=== PATIENT | male | born 1985 | race African-American/Black ===

== ENCOUNTER 2016-07-16 05:14 | Day surgery (SDC) | payer OTHER ==
[~2016-07-16] VITALS: Ht 185.4 cm; Wt 95.3 kg
--- NOTE | ~2016-07-16 | S ---
[facility] [place] [address] SURGICAL PATH RPT PROCEDURE Name: MOLLY DUKE Room #: DEP [facility]..#: [id number] Admission: 07/16/16 Date of : 81 Discharge: 07/16/16 Report #: [id number] Path Case #: [id number] PATHOLOGY REPORT COLLECTION DATE: 07/16/2016 RECEIVED DATE: 07/16/2016 SUBMITTING PHYS: Dr. Pierce Anderson OTHER PHYS: Dr. Humberto Mg SPECIMEN(S) RECEIVED: A.Hernia sac * * * * * * * * * * * * FINAL DIAGNOSIS: Hernia sac, repair: - Dense fibrovascular and fibroadipose connective tissue with reactive changes compatible with hernia sac. (IUV:csd; d/t: 07/17/2016) PATHOLOGIST: Rosaline Sagastume M.D. REPORT ELECTRONICALLY SIGNED BY: Rosaline Sagastume M.D. DATE/TIME: 07/17/2016 15:04 * * * * * * * * * * * * GROSS PATHOLOGY: Received in formalin labeled "Molly Duke and hernia sacs," are 2 pieces of blood-tinged, pink-foster to yellow-foster, membranous, and lobulated fibroadipose tissue measuring 16.7 x 7.8 x 2.0 cm in aggregate. No nodules or lesions are identified. Buffet Attendant tissue is submitted in cassette A1. (TTL; 07/16/2016) CLINICAL HISTORY: Umbilical and left inguinal hernias INITIAL CPT CODE(S): A; 03425 Professional services performed by [facility] at [facility] [address] [place] [address] Technical services performed by [facility] at [address] [place] [id number]. [facility] [address] [place] [address] SURGICAL PATH RPT PROCEDURE Name: MOLLY DUKE Room #: JENARO Gore#: [id number] Admission: 07/16/16 Date of : 81 Discharge: 07/16/16 Report #: [id number] Path Case #: [id number] [place] [id number] [address] PHONE: [phone] DIRECTOR: Brandt Beck M.D. * * * END OF REPORT * * *
--- NOTE | ~2016-07-16 | O ---
[facility] [place] [address] OPERATIVE REPORT Name: LEILANIMOLLY D Room #: DEP [facility]#: [id number] Admission: 07/16/16 Attend Phys: Pierce Anderson MD Discharge: 07/16/16 Date of : 81 Report #: [id number] THIS REPORT FOR: //name// CC: Humberto Mg DO Pierce Anderson MD Patient of Dr. Pierce Anderson and Dr. Humberto Mg. DATE OF OPERATION: 07/16/2016. PREOPERATIVE DIAGNOSES: Incarcerated ventral epigastric hernia and an incarcerated left inguinal hernia. POSTOPERATIVE DIAGNOSES: Incarcerated ventral epigastric hernia and an incarcerated left inguinal hernia. PROCEDURES: Repair of an incarcerated ventral epigastric hernia and repair of an incarcerated left inguinal hernia. SURGEON: Pierce Anderson MD. ANESTHESIA: General. DESCRIPTION OF PROCEDURE: The patient was brought to the operating room and placed on the operative table in the supine position. Sequential compression device in place for DVT prophylaxis. There was no indication for preoperative antibiotics. The patient underwent a general LMA anesthesia, abdomen and pelvis was prepped and draped in a sterile fashion. Skin and subcutaneous tissue overlying the left inguinal area was infiltrated with 0.5% Marcaine. Left inguinal skin incision was then performed using #10 scalpel blade. Hemostasis obtained using electrocautery. Suction was carried down through subcutaneous tissues and the electrocautery. The external oblique fascia was identified and incised with a knife and opened with the Metzenbaum scissors. The ilioinguinal nerve was identified, dissected free and preserved. The cord was dissected free along with a large incarcerated direct inguinal hernia. The cord was dissected free and held in place with a [place] drain. The large incarcerated direct inguinal hernia defect was dissected free and then reduced back through the floor. An Extended Prolene hernia system mesh was then inserted through the floor and the onlay patch was then deployed in the preperitoneal space. The floor was then tightened around the connector using running 2-0 Prolene two layer shouldice repair. The overlay patch was then deployed in the inguinal canal. The mesh was secured at the pubic tubercle with the same running 2-0 Prolene suture. It was then secured superiorly and at the connector using simple interrupted 2-0 Vicryl sutures. The mesh was split and wrapped around the cord and secured to the inguinal ligament with simple interrupted 2-[address] [address] OPERATIVE REPORT Name: MOLLY DUKE [id number] Admission: 07/16/16 Attend Phys: Pierce Anderson MD Discharge: 07/16/16 Date of : 81 Report #: [id number] suture. The cord and ilioinguinal nerve were then returned to the canal intact. The external oblique fascia was then closed using running 2-0 Vicryl suture. Favio fascia was then reapproximated using 3 simple interrupted 2-0 chromic sutures and the skin then closed with a running 4-0 subcuticular Vicryl stitch. Attention was then turned to the incarcerated ventral epigastric hernia. The skin and subcutaneous tissue overlying the hernia were infiltrated with 0.5% Marcaine. Transverse supraumbilical skin incision was performed over the hernia using a #10 scalpel blade. Hemostasis obtained using electrocautery. Dissection was carried down through subcutaneous tissue. This large incarcerated hernia sac, which was dissected free down to the fascia. Hernia sac was then opened and a portion of incarcerated omentum and transverse colon were carefully dissected free and reduced back into the abdomen. Meticulous hemostasis was obtained in this area using electrocautery as well as clamps and 2-0 chromic ties and 2-0 chromic suture ligatures. It was very difficult to get this intestines were reduced back into the abdomen and then, after multiple attempts under the general LMA anesthesia, it was decided the patient needed a full relaxation and general endotracheal anesthesia was performed changing from the LMA to the general endotracheal anesthesia. After a full abdominal relaxation and paralyzation, we were then able to get the incarcerated transverse colon back into the abdomen. I was then able to easily close the fascia using interrupted [id number] #1 Prolene sutures. The deep and superficial subcutaneous tissue was then reapproximated using simple interrupted 2-0 chromic sutures and the skin then closed with a running 4-0 subcuticular Vicryl stitch. The wounds were then dressed with Mastisol, half inch Steri-Strips cut in half, Telfa, 4 x 4, sponge and tape. The patient was then awakened from the general endotracheal anesthesia, extubated, and taken to recovery room in good condition. Estimated blood loss was approximately 20 mL total and the patient tolerated the procedure well. All sponge, lap and instrument counts were correct x 2. <ELECTRONICALLY SIGNED> By: Pierce Anderson MD 07/16/16 1531 1311 1352 Pierce Anderson MD /nt
--- NOTE | ~2016-07-16 | EKG ---
[address] [address] ELECTROCARDIOGRAM REPORT Name: MOLLY DUKE Room #: DEP [facility]#: [id number] Admission: 07/16/16 Attend Phys: Pierce Anderson MD Discharge: 07/16/16 Date of : 81 Report #: [id number] THIS REPORT FOR: //name// [facility] Test Date: 2016-07-16 Test Time: 08:15:02 Pat Name: MOLLY DUKE Department: Room: 150 5 Gender: M Senior Outside Sales Representative: FANI : 1985 Requested By: Pierce Anderson Order Number: [id number] MD: Patrice Huerta Measurements Intervals [place] Rate: 76 P: 62 CT: 154 QRS: 3 QRSD: 92 T: 17 QT: 345 QTc: 388 Interpretive Statements Sinus rhythm Normal tracing No previous ECG available for comparison Electronically Signed On 07-17-2016 8:12:37 CDT by Patrice Huerta [email or web address] <ELECTRONICALLY SIGNED> By: Patrice Huerta MD, [facility] 07/17/16 0812 4 4 Patrice Huerta MD, FACC /EPI
[~2016-07-16 05:14] MED LIST: MULTIVITAMINS PO; OMEPRAZOLE40 MG PO; ZANTAC 150MG T150 MG PO; ZESTORETIC 20-1 EAC3 PO
[2016-07-16 08:10] LABS: CALCIUM 9.8 mg/dL (8.5-10.1); CREATININE 1.2 mg/dL (0.6-1.3); POTASSIUM 4.2 mmol/L (3.5-5.1)
[2016-07-16 08:48] VITALS: BP 156/92
[2016-07-16] MEDS ORDERED: NORCO 5-325 TA1 EACH PO (13:16)
[2016-07-16 13:33] VITALS: BP 156/92
== END 2016-07-16 14:38 | disposition home or self-care (01) ==
LOC: TBA 05:14 → OR 05:14
PROVIDERS: Surgery
DX: K43.6 Other and unspecified ventral hernia with obstruction, without gangrene (principal); K40.30 Unilateral inguinal hernia, with obstruction, without gangrene, not specified as recurrent; I10 Essential (primary) hypertension; G47.33 Obstructive sleep apnea (adult) (pediatric); K21.9 Gastro-esophageal reflux disease without esophagitis; F17.210 Nicotine dependence, cigarettes, uncomplicated
CPT/HCPCS: 50010; 50101; 50386; 50417; 54111; 56524; 56525; 56526; 56532; 62110; 62900; 70005

== ENCOUNTER 2017-05-31 08:44 | Emergency (ER) | payer OTHER ==
[~2017-05-31] VITALS: Ht 185.4 cm; Wt 84.4 kg
--- NOTE | ~2017-05-31 | EKG ---
[place] [address] [facility] [address] ELECTROCARDIOGRAM REPORT Name: MOLLY DUKE [id number] Admission: 05/31/17 Attend Phys: Discharge: 05/31/17 Date of : 81 Report #: [id number] THIS REPORT FOR: //name// [facility] ED Test Date: 2017-05-31 Test Time: 09:24:45 Pat Name: MOLLY DUKE Department: Room: Gender: It Communications Specialist: [facility] : 1985 Requested By: Kuldip Benítez Order Number: [id number] MD: Patrice Huerta Measurements Intervals [place] Rate: 74 P: 49 OK: 152 QRS: 9 QRSD: 89 T: 31 QT: 360 QTc: 400 Interpretive Statements Sinus rhythm ST elevation, early repolarization Compared to ECG 07/16/2016 08:15:02 No significant change was found Electronically Signed On 05-31-2017 11:33:44 SENIOR GENETIC COUNSELOR by Patrice Huerta [email or web address] <ELECTRONICALLY SIGNED> By: Patrice Huerta MD, [facility] 05/31/17 1133 0924 3 Patrice Huerta MD, FACC /EPI
[~2017-05-31 08:44] MED LIST changes: +NORCO 5-325 TA1 EACH PO
[2017-05-31] MEDS ORDERED: TRAZODONE HCL100 MG PO (08:58)
[2017-05-31 09:36] LABS: ABSOLUTE NEUTROPHILS 5.8 thou/uL (1.4-8.2); BASOPHILS 0.3 % (0.0-2.0); EOSINOPHILS 0.5 % (0.0-3.0); HEMATOCRIT 46.9 % (42.0-52.0); HEMOGLOBIN 16.2 gm/dL (14.0-18.0); MCH 29.9 pg (26.0-34.0); MCHC 34.5 g/dL (28.0-37.0); MCV 86.5 fL (80.0-100.0); MONOCYTES 5.8 % (1.0-8.0); PLATELET COUNT 307 thou/uL (150-400); POLYS 71.4 % (36.0-66.0); RBC 5.43 mil/uL (4.50-6.00); RDW 13.3 % (10.5-14.5); WBC 8.1 thou/uL (4.0-11.0)
[2017-05-31 09:44] LABS: ANION GAP 10 mmol/L (7-16); BUN 18 mg/dL (7-18); CALCIUM 9.7 mg/dL (8.5-10.1); CHLORIDE 102 mmol/L (98-107); CO2 29 mmol/L (21-32); CREATININE 1.2 mg/dL (0.7-1.3); GLUCOSE 113 mg/dL (74-106); POTASSIUM 3.7 mmol/L (3.5-5.1); SODIUM 141 mmol/L (136-145)
[2017-05-31 09:53] LABS: TROPONIN-I < 0.04 ng/mL (<0.06)
[2017-05-31] MEDS ORDERED: PROVENTIL HFA6.7 G1 INH (10:17)
[2017-05-31] MEDS ORDERED: TESSALON PERLE100 MG PO (10:17)
[2017-05-31] MEDS ORDERED: MEDROLDOSEPACK PO (10:17)
[2017-05-31 10:33] VITALS: BP 138/96
== END 2017-05-31 10:36 | disposition home or self-care (01) ==
LOC: ER 08:44
PROVIDERS: Physician Assistant
DX: J40 Bronchitis, not specified as acute or chronic (principal); I10 Essential (primary) hypertension; K21.9 Gastro-esophageal reflux disease without esophagitis; F12.10 Cannabis abuse, uncomplicated